=== PATIENT | male | born 1975 | race Caucasian/White ===

== ENCOUNTER 2021-03-18 17:05 | Emergency (ER) | payer OTHER ==
--- NOTE | 2021-03-18 20:17 | RAD REPORT ---
EXAM DESCRIPTION: RAD - Chest Single View - 03/18/2021 7:50 pm CLINICAL HISTORY: PALPITATIONS COMPARISON: No comparisons FINDINGS: Lines: None. Lungs: No evidence of edema or pneumonia. Pleural: No significant pleural effusions or pneumothorax. Cardiac: The heart size is within normal limits. Bones: No acute fractures. Other: IMPRESSION: No acute cardiopulmonary disease.
[2021-03-18 21:07] LABS: Absolute Lymphocytes (CBC) 1.3 K/uL (0.7-4.9); Hematocrit 47.6 % (39.6-49.0); Lymphocytes % 16.1 % (15.3-44.8); MPV 11.4 fL (7.6-11.3)
[2021-03-18 21:29] LABS: Urine Blood Negative (Negative); Urine Glucose Negative (Negative); Urine Protein Negative (Negative); Urine Specific Gravity 1.015 (1.005-1.030); Urine pH 7.5 (5.0-7.0)
[2021-03-18 21:33] LABS: ALT/SGPT 46 U/L (12-78); AST/SGOT 24 U/L (15-37); Albumin 4.4 g/dL (3.4-5.0); Alkaline Phosphatase 83 U/L (45-117); BUN Blood Urea Nitrogen 11 mg/dL (7-18); Bicarbonate 28 mmol/L (21-32); Bilirubin Direct 0.2 mg/dL (0-0.2); Glucose Level 90 mg/dL (74-106); Magnesium 2.6 mg/dL (1.8-2.4); NT PRO-BNP 53 pg/mL (<125); Potassium 3.4 mmol/L (3.5-5.1); Protein, Total 8.3 g/dL (6.4-8.2); Sodium Level 140 mmol/L (136-145); Troponin (Emerg Dept Use Only) < 0.02 ng/mL (0.0-0.045)
[2021-03-18 21:38] LABS: Protime INR 1.1
[2021-03-18 22:13] LABS: Barbiturates NEGATIVE (NEGATIVE); Benzodiazepines NEGATIVE (NEGATIVE); Cocaine NEGATIVE (NEGATIVE); METHAMPHETAM NEGATIVE (NEGATIVE); Methadone NEGATIVE (NEGATIVE); Opiates NEGATIVE (NEGATIVE); Phencyclidine NEGATIVE (NEGATIVE); THC Cannibis NEGATIVE (NEGATIVE)
--- NOTE | 2021-03-18 22:50 | ER ---
Nurse's Notes [facility] Name: Steve Saunders Age: 45 yrs Sex: Male : 1975 Arrival Date: 03/18/2021 Time: 17:11 Bed 6 Private MD: Diagnosis: Palpitations Presentation: 03/18 17:40 Chief complaint: Patient states: Fast HR today. 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 Had similar symptoms 3 weeks ago, got tylenol and IV fluids, then it resolved. Feels anxious again. Coronavirus screen: Vaccine status: Patient reports receiving the 2nd dose of the covid vaccine. Client denies travel out of the [place] in the last 14 days. At this time, the client does not indicate any symptoms associated with coronavirus-19. Ebola Screen: Patient denies travel to an Ebola-affected area in the 21 days before illness onset. Initial Sepsis Screen: Does the patient meet any 2 criteria? No. Patient's initial sepsis screen is negative. Does the patient have a suspected source of infection? No. Patient's initial sepsis screen is negative. Risk Assessment: Do you want to hurt yourself or someone else? Patient reports no desire to harm self or others. Onset of symptoms was March 18, 2021. 17:40 Method Of Arrival: Ambulatory ll1 17:40 Acuity: DIMITRIOS 3 ll1 Historical: - Allergies: 17:42 No Known Allergies; ll1 - PMHx: 17:42 Anxiety; ll1 - PSHx: 17:42 None; ll1 - Immunization history:: Client reports receiving the 2nd dose of the Covid vaccine, Flu vaccine status is unknown. - Social history:: Smoking status: Patient denies any tobacco usage or history of. Screenin:28 Abuse screen: Denies threats or abuse. Nutritional screening: No deficits noted. al4 Tuberculosis screening: No symptoms or risk factors identified. Fall Risk No fall in past 12 months (0 pts). IV access (20 points). Ambulatory Aid- None/Bed Rest/Nurse Assist (0 pts). Gait- Normal/Bed Rest/Wheelchair (0 pts) Mental Status- Oriented to own ability (0 pts). Total Irving Fall Scale indicates No Risk (0-24 pts). Assessment: 21:00 General: Appears in no apparent distress. comfortable, Behavior is cooperative, al4 anxious, Reports "I was painting and moving boxes and my HR shot up to around 110 and it made me anxious." Patient denies pain and n/v/d. Pain: Denies pain. Neuro: Level of Consciousness is awake, alert, obeys commands, Oriented to person, place, time, situation. Cardiovascular: Heart tones present Capillary refill < 3 seconds Patient's skin is warm and dry. Respiratory: Airway is patent Respiratory effort is even, unlabored, Respiratory pattern is regular, symmetrical, Breath sounds are clear. GI: No signs and/or symptoms were reported involving the gastrointestinal system. GI: No signs and/or symptoms were reported involving the gastrointestinal system. : No signs and/or symptoms were reported regarding the genitourinary system. EENT: No signs and/or symptoms were reported regarding the EENT system. Derm: No signs and/or symptoms reported regarding the dermatologic system. Musculoskeletal: No signs and/or symptoms reported regarding the musculoskeletal system. 22:27 Reassessment: Patient and/or family updated on plan of care and expected duration. Pain al4 level reassessed. Patient is alert, oriented x 3, equal unlabored respirations, skin warm/dry/pink. patient states "my HR goes down when nobody is in the room and then shoots back up again when yall walk in." denies pain at this time. Vital Signs: 17:40 BP 152 / 98; Pulse 99; Resp 17; Temp 98.4; Pulse Ox 100% ; Weight 88.45 kg; Height 6 ll1 ft. 1 in. (185.42 cm); Pain 0/10; 20:15 BP 131 / 90; Pulse 85; Resp 18; Pulse Ox 99% ; al4 21:00 BP 112 / 72; Pulse 92; Resp 18; Pulse Ox 100% ; al4 22:00 BP 100 / 66; Pulse 82; Resp 18; Pulse Ox 99% ; al4 17:40 Body Mass Index 25.73 (88.45 kg, 185.42 cm) ll1 ED Course: 17:11 Patient arrived in ED. ds1 17:42 Triage completed. ll1 17:43 Arm band placed on. ll1 19:04 Latrell Mcqueen MD is Attending Physician. mh7 19:09 Slawson, Orlin, RN is Primary Nurse. as6 19:50 XRAY Chest (1 view) In Process Unspecified. EDMS 22:28 Patient has correct armband on for positive identification. gambling monitor on. Pulse al4 ox on. NIBP on. 22:28 Patient maintains SpO2 saturation greater than 95% on room air. al4 22:31 Inserted saline lock: 20 gauge in left antecubital area, using aseptic technique. al4 ,using aseptic technique. inserted by Mela Arnold RN. 22:50 No provider procedures requiring assistance completed. al4 22:58 IV discontinued, intact, bleeding controlled, No redness/swelling at site. Pressure al4 dressing applied. Administered Medications: No medications were administered Outcome: 22:49 Discharge ordered by . 7 22:58 Discharged to home ambulatory. al4 22:58 Condition: stable 22:58 Discharge instructions given to patient, Instructed on discharge instructions, follow up and referral plans. Demonstrated understanding of instructions, follow-up care. 22:59 Patient left the ED. al4 Signatures: Dispatcher [employer] [facility] Anna Henry ds1 Joseph Zavala, RN RN ll1 Latrell Mcqueen MD MD 7 Orlin Huang RN RN as6 Stevie Godinez al4
--- NOTE | 2021-03-18 22:50 | EDPHYS ---
Physician Documentation [facility] Name: Steve Saunders Age: 45 yrs Sex: Male : 1975 Arrival Date: 03/18/2021 Time: 17:11 Bed 6 Private MD: ED Physician Latrell Mcqueen HPI: 03/18 19:32 This 45 yrs old Male presents to ER via Ambulatory with complaints of Irregular Pulse. mh7 19:32 The patient presents with a history of irregular heart beat, heart racing. Context: The mh7 symptoms occur with anxiety. Context: The symptoms occur at rest. Onset: The symptoms/episode began/occurred this morning, today. Duration: The patient or guardian reports multiple episodes, that are intermittent, that wax and wane, with no pattern. Modifying factors: The symptoms are aggravated by anxiety, light activity, The symptoms are alleviated by nothing. Associated signs and symptoms: Pertinent positives: anxiety, Pertinent negatives: chest pain, cough, fever, lightheadedness, nausea, SOB, syncope, near-syncope, vertigo, vomiting. Severity of symptoms: At their worst the symptoms were moderate today, in the emergency department the symptoms have improved moderately. Patient reports feeling his heart beating fast and irregular at times today. 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 He denies any fever, headache, chest pain, abdominal pain, cough, shortness of breath, nausea, vomiting, dizziness, numbness/tingling, or weakness.. Historical: - Allergies: 17:42 No Known Allergies; ll1 - PMHx: 17:42 Anxiety; ll1 - PSHx: 17:42 None; ll1 - Immunization history:: Client reports receiving the 2nd dose of the Covid vaccine, Flu vaccine status is unknown. - Social history:: Smoking status: Patient denies any tobacco usage or history of. ROS: 19:32 Constitutional: Negative for fever, chills, and weight loss, Eyes: Negative for injury, mh7 pain, redness, and discharge, ENT: Negative for injury, pain, and discharge, Neck: Negative for injury, pain, and swelling, Abdomen/GI: Negative for abdominal pain, nausea, vomiting, diarrhea, and constipation, Back: Negative for injury and pain, : Negative for injury, bleeding, discharge, and swelling, MS/Extremity: Negative for injury and deformity, Skin: Negative for injury, rash, and discoloration, Neuro: Negative for headache, weakness, numbness, tingling, and seizure, Psych: Negative for depression, anxiety, suicide ideation, homicidal ideation, and hallucinations, Allergy/Immunology: Negative for hives, rash, and allergies, Endocrine: Negative for neck swelling, polydipsia, polyuria, polyphagia, and marked weight changes, Hematologic/Lymphatic: Negative for swollen nodes, abnormal bleeding, and unusual bruising. Exam: 19:32 Head/Face: Normocephalic, atraumatic. Eyes: Pupils equal round and reactive to light, mh7 extra-ocular motions intact. Lids and lashes normal. Conjunctiva and sclera are non-icteric and not injected. Cornea within normal limits. Periorbital areas with no swelling, redness, or edema. Neck: Trachea midline, no thyromegaly or masses palpated, and no cervical lymphadenopathy. Supple, full range of motion without nuchal rigidity, or vertebral point tenderness. No Meningismus. Chest/axilla: Normal chest wall appearance and motion. Nontender with no deformity. No lesions are appreciated. Cardiovascular: Regular rate and rhythm with a normal S1 and S2. No gallops, murmurs, or rubs. Normal PMI, no JVD. No pulse deficits. Respiratory: Lungs have equal breath sounds bilaterally, clear to auscultation and percussion. No rales, rhonchi or wheezes noted. No increased work of breathing, no retractions or nasal flaring. Abdomen/GI: Soft, non-tender, with normal bowel sounds. No distension or tympany. No guarding or rebound. No evidence of tenderness throughout. Back: No spinal tenderness. No costovertebral tenderness. Full range of motion. Skin: Warm, dry with normal turgor. Normal color with no rashes, no lesions, and no evidence of cellulitis. MS/ Extremity: Pulses equal, no cyanosis. Neurovascular intact. Full, normal range of motion. Neuro: Awake and alert, GCS 15, oriented to person, place, time, and situation. Cranial nerves II-XII grossly intact. Motor strength 5/5 in all extremities. Sensory grossly intact. Cerebellar exam normal. Normal gait. 19:32 Constitutional: The patient appears in no acute distress, alert, awake, anxious. 19:32 Psych: Behavior/mood is cooperative, anxious, Affect is Oriented to person, place, time, Patient has no thoughts/intents to harm self or others. Judgement / Insight is normal. Memory is normal. Delusions/hallucinations are not present. Vital Signs: 17:40 BP 152 / 98; Pulse 99; Resp 17; Temp 98.4; Pulse Ox 100% ; Weight 88.45 kg; Height 6 ll1 ft. 1 in. (185.42 cm); Pain 0/10; 20:15 BP 131 / 90; Pulse 85; Resp 18; Pulse Ox 99% ; al4 21:00 BP 112 / 72; Pulse 92; Resp 18; Pulse Ox 100% ; al4 22:00 BP 100 / 66; Pulse 82; Resp 18; Pulse Ox 99% ; al4 17:40 Body Mass Index 25.73 (88.45 kg, 185.42 cm) ll1 MDM: 22:48 Differential diagnosis: arrythmia, dehydration, stress disorder. Data reviewed: vital [facility] signs, nurses notes, lab test result(s), cardiac enzymes, CBC, drug level(s), alcohol, electrolytes, Flu: negative urinalysis, urine drug screen, Covid negative, EKG, radiologic studies, plain films. Data interpreted: Pulse oximetry: on room air is 99 %. Interpretation: normal. Counseling: I had a detailed discussion with the patient and/or guardian regarding: the historical points, exam findings, and any diagnostic results supporting the discharge/admit diagnosis, lab results, radiology results, the need for outpatient follow up, to return to the emergency department if symptoms worsen or persist or if there are any questions or concerns that arise at home. Response to treatment: the patient's symptoms have resolved after treatment, the patient's blood pressure is in an acceptable range, mental status has returned to baseline, the patient no longer shows bradycardia, the patient is not short of breath, the patient is not tachycardic, the patient's pain is gone, the patient's temperature has normalized, the patient is now symptom free, patient is well hydrated. 22:49 Patient medically screened. [facility] 03/18 19:18 Order name: Basic Metabolic Panel; Complete Time: 21:48 7 03/18 19:18 Order name: CBC with Diff; Complete Time: 21:48 7 03/18 19:18 Order name: LFT's; Complete Time: 21:48 7 03/18 19:18 Order name: Magnesium; Complete Time: 21:48 7 03/18 19:18 Order name: NT PRO-BNP; Complete Time: 21:48 7 03/18 19:18 Order name: PT-INR; Complete Time: 22:37 7 03/18 19:18 Order name: Troponin (emerg Dept Use Only); Complete Time: 21:48 7 03/18 19:18 Order name: UDS; Complete Time: 22:13 7 03/18 19:18 Order name: ETOH Level; Complete Time: 21:48 7 03/18 19:18 Order name: TSH; Complete Time: 21:48 7 03/18 21:29 Order name: Urine Dipstick-Ancillary; Complete Time: 21:48 EDMS 03/18 22:15 Order name: D-Dimer; Complete Time: 22:37 EDMS 03/18 19:18 Order name: XRAY Chest (1 view); Complete Time: 20:19 7 03/18 19:18 Order name: EKG; Complete Time: 19:19 7 03/18 19:18 Order name: Cardiac monitoring; Complete Time: 20:19 7 03/18 19:18 Order name: EKG - Nurse/Tech; Complete Time: 20:19 7 03/18 19:18 Order name: IV Saline Lock; Complete Time: 20:19 7 03/18 19:18 Order name: Labs collected and sent; Complete Time: 21:15 7 03/18 19:18 Order name: O2 Per Protocol; Complete Time: 19:46 7 03/18 19:18 Order name: O2 Sat Monitoring; Complete Time: 19:46 mh7 Administered Medications: No medications were administered Disposition Summary: 03/18/21 22:49 Discharge Ordered Location: Home [facility] Problem: new [facility] Symptoms: have improved [facility] Condition: Stable [facility] Diagnosis - Palpitations [facility] Followup: [facility] - With: Private Physician - When: 1 - 2 days - Reason: Worsening of condition, Recheck today's complaints, Continuance of care, Re-evaluation by your physician Discharge Instructions: - Discharge Summary Sheet [facility] - Palpitations, [id number] [facility] Forms: - Medication Reconciliation Form [facility] - Thank You Letter [facility] - Antibiotic Education [facility] - Prescription Opioid Use [facility] Signatures: Dispatcher [employer] Joseph Leung RN RN ll1 Latrell Mcqueen MD MD [facility] Corrections: (The following items were deleted from the chart) 22:15 21:50 D-DIMER+[email or web address].LAB.BRZ ordered. EDWI AUTUMNWI
[2021-03-18 23:57] VITALS: TEMP 98.4
[2021-03-19 00:15] VITALS: BP 100/66; O2SAT 99
--- NOTE | 2021-03-19 11:23 | EKG ---
Test Date: 2021-03-18 Test Time: 17:45:05 Artillery Specialist: ADDY MEASUREMENT RESULTS: Intervals: Rate: 97 NM: 150 QRSD: 90 QT: 346 QTc: 439 [place]: P: 37 NM: 150 QRS: 40 T: 28 INTERPRETIVE STATEMENTS: Normal sinus rhythm Normal ECG No previous ECG available for comparison Electronically Signed On 03-19-21 11:22:17 [employer] by Chirag Hernandez
== END 2021-03-18 22:59 | disposition home or self-care (01) ==
LOC: ER 17:05
DX: R00.2 Palpitations (principal)
CPT/HCPCS: 36415; 71045; 80048; 80076; 80307; 80320; 81003; 83735; 83880; 84443; 84484; 85025; 85379; 85610; 93005; 99285